=== PATIENT | male | born 1990 | race Caucasian/White ===

== ENCOUNTER 2019-06-03 21:53 | Emergency (ER) | payer OTHER ==
[2019-06-03 21:55] VITALS: BP 166/107
[2019-06-03] MEDS ORDERED: ESCI10TA8 PO (21:59)
--- NOTE | 2019-06-03 21:59 | ER Report ---
History and Physical Time Seen By MD: 21:55 Hx. of Stated Complaint: Left ear swollen and painful HPI/ROS CHIEF COMPLAINT: ear pain HISTORY OF PRESENT ILLNESS: Left ear with pain and feels swollen, progressing to now with pain in front and behind ear. Has had no drainage, but felt like a little while checking in to the ER tonight. No fevers or chills. Mild sore throat/congestion feeling. No headache or dizziness. No hearing change. Allergies: Coded Allergies: No Known Drug Allergies (Unverified , 06/03/19) Home Meds Active Scripts Ketorolac Tromethamine (KETOROLAC TROMETHAMINE) 10 Mg Tab, 10 MG PO Q6H PRN for PAIN, #12 TAB 0 Refills Prov:SUSAN JENKINS MD 06/03/19 Amoxicillin (AMOXICILLIN) 500 Mg Capsule, 1 CAP PO TID, #30 CAPSULE 0 Refills Prov:SUSAN JENKINS MD 06/03/19 Reported Medications Escitalopram Oxalate (ESCITALOPRAM OXALATE) 10 Mg Tablet, 10 MG PO QDAY, TAB 06/03/19 Reviewed Nurses Notes: Yes Constitutional Vital Sign - Last 24 Hours 06/03/19 21:55 Temp 98.7 Pulse 105 Resp 16 B/P (MAP) 166/107 Pulse Ox 91 O2 Delivery Room Air Physical Exam General: Alert, no distress. ENT: left ear with red, bulging, TM, no drainage or rupture noted, but cannot see the entire TM. No canal redness. No mastoid tenderness. Nasal and oral mucosa are normal. Cardiovascular: Regular, normal perfusion Respiratory: Breathing easily, clear. Medical Decision Making ED Course/Re-evaluation ED Course Treated with Toradol to help with pain, Amoxicillin for the ear infection. Decision to Disposition Date: Jun 03, 2019 Decision to Disposition Time: 22:21 Depart Departure Latest Vital Signs Vital Signs Date Time Temp Pulse Resp B/P (MAP) Pulse Ox O2 Delivery O2 Flow Rate FiO2 06/03/19 21:55 98.7 105 16 166/107 91 Room Air Impression: Primary Impression: Acute otitis media Condition: Improved Disposition: HOME OR SELF-CARE New Scripts Ketorolac Tromethamine (KETOROLAC TROMETHAMINE) 10 Mg Tab 10 MG PO Q6H PRN for PAIN, #12 TAB 0 Refills Prov: SUSAN JENKINS MD 06/03/19 Amoxicillin (AMOXICILLIN) 500 Mg Capsule 1 CAP PO TID, #30 CAPSULE 0 Refills Prov: SUSAN JENKINS MD 06/03/19 Patient Instructions: Otitis Media (ED) Additional Instructions: You have an ear infection. Take the antibiotic Amoxicillin 500mg three times a day for 10 days. Take Toradol 10mg, one every 6 hours as needed for pain. This is an anti-inflammatory medicine similar to Ibuprofen, so do not take any Ibuprofen while taking the Toradol. Drink extra fluids while taking this medication. You can also use Tylenol for pain. Problem Qualifiers Primary Impression: Acute otitis media Otitis media type: suppurative Laterality: left Recurrence: non- recurrent Spontaneous tympanic membrane rupture: without spontaneous rupture Qualified Codes: H66.002 - Acute suppurative otitis media without spontaneous rupture of ear drum, left ear SUSAN JENKINS MD Jun 03, 2019 21:59
[2019-06-03] MEDS ORDERED: KETOROLAC TROM 10 MG TAB TH PO ONE (22:25)
[2019-06-03] MEDS ORDERED: AMOXICILLIN 500 MG CAP PO ONE (22:25)
[2019-06-03] MEDS ORDERED: AMOX-362 PO (22:27)
[2019-06-03] MEDS ORDERED: KET10 PO (22:27)
== END 2019-06-03 22:35 | disposition home or self-care (01) ==
LOC: ER 22:13
DX: H66.002 Acute suppurative otitis media without spontaneous rupture of ear drum, left ear (principal)
CPT/HCPCS: 99283